=== PATIENT | female | born 1970 | race Caucasian/White ===

== ENCOUNTER 2016-10-03 09:29 | Emergency (ER) | payer BC ==
[2016-10-03 10:02] VITALS: BP 122/63; PULSE 78; RESP 18; TEMP 98; O2SAT 97
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
== END 2016-10-03 10:44 | disposition home or self-care (01) ==
LOC: CED 09:29
DX: S90.31XA Contusion of right foot, initial encounter (principal); Y93.18 Activity, surfing, windsurfing and boogie boarding; X50.0XXA Overexertion from strenuous movement or load, initial encounter; Y99.8 Other external cause status
CPT/HCPCS: 73630-PO; G0463-PO